=== PATIENT | female | born 1935 | race Caucasian/White ===

== ENCOUNTER → 2016-07-14 | Outpatient (CLI) | payer MEDICARE, OTHER ==
[2016-07-14 12:44] LABS: CHLORIDE,CL 108 mmol/L (98-110); SODIUM,NA 140 mmol/L (136-146)
== END ==
LOC: MW.CHIM 11:57
PROVIDERS: ATTEND Internal Medicine
DX: E05.90 Thyrotoxicosis, unspecified without thyrotoxic crisis or storm (principal); Z00.00 Encounter for general adult medical examination without abnormal findings; E03.9 Hypothyroidism, unspecified; M19.049 Primary osteoarthritis, unspecified hand
CPT/HCPCS: 36415; 80053; 80061; 84439; 84443; 85025; 99214

== ENCOUNTER 2021-04-11 11:15 | Emergency (ER) | payer MEDICARE, OTHER ==
--- NOTE | 2021-04-11 11:39 | EDM.PDOC ---
<Samra Grant - Last Filed: 04/11/21 12:13> ED HPI GENERAL MEDICAL PROBLEM - General Chief Complaint: Lower Extremity Injury/Pain Stated Complaint: DIAGNOSED W/BLOOD CLOT IN LEG Time Seen by Provider: 04/11/21 11:17 - History of Present Illness INITIAL COMMENTS - FREE TEXT/NARRATIVE: 85-year-old female sent over from neurology clinic after lower extremity ultrasound showed acute DVT from knee to mid calf involving the popliteal and posterior tibial veins. 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 She states her neurologist believes this may be related to IVIG. Patient states that she has been experiencing increased left lower extremity swelling for 1 week but denies pain. She is unable to dorsiflex or plantarflex her ankle. No overlying ecchymosis. Patient states she had COVID in late February and she is not vaccinated. Patient denies smoking. She has a history of hypertension and hypothyroidism. Patient denies history of bleeding or easy bruising. Denies history of cancer, renal failure, thrombocytopenia, stroke, diabetes or recent surgeries. Patient states she fell twice this summer by tripping over a garden hose. She ambulates with a walker at home. Denies alcohol abuse. Drinks 1 glass of wine once a week. - Related Data Allergies Allergy/AdvReac Type Severity Reaction Status Date / Time diphenhydramine Allergy Giddiness Verified 04/11/21 11:33 [From Benadryl] Penicillins Allergy Giddiness Verified 04/11/21 11:33 pseudoephedrine Allergy Giddiness Verified 04/11/21 11:33 [From Sudafed] Home Meds: Home Meds B-Complex with Vitamin C [Vitamin B-Complex & C] 1 each PO 04/11/21 [History] Cranberry 1,000 mg 04/11/21 [History] Glucosamine [Glucosamine Sulfate] 500 mg PO 04/11/21 [History] Levothyroxine 75 mcg PO ACBREAKFAST 04/11/21 [History] Magnesium Oxide 500 mg PO 04/11/21 [History] Rivaroxaban [Xarelto] 15 mg PO DAILY 21 Days #42 tab 04/11/21 [Rx] lisinopriL [Zestril] 10 mg PO 04/11/21 [History] Review of Systems - Review of Systems Review Of Systems: Comprehensive ROS is negative, except as noted in HPI. ED EXAM, GENERAL - Physical Exam Exam: See Below General Appearance: Alert, No Apparent Distress Eye Exam: Bilateral Eye: Normal Inspection Nose: Normal Inspection Throat/Mouth: Normal Inspection, Normal Lips, Normal Teeth, Normal Oropharynx Head: Atraumatic, Normocephalic Neck: Normal Inspection, Supple, Non-Tender Respiratory/Chest: No Respiratory Distress, Lungs Clear, Normal Breath Sounds, Chest Non-Tender Cardiovascular: Normal Peripheral Pulses, Regular Rate, Rhythm, No Rub GI/Abdominal: Normal Bowel Sounds, Soft, Non-Tender Back Exam: Normal Inspection Extremities: Other (Left lower extremity: Swelling from mid calf to mid foot, overlying erythema. Decreased range of motion due to swelling. Homans' sign positive. Nontender to palpation.) Neurological: Alert, Oriented, Normal Cognition, No Motor/Sensory Deficits Departure - Departure Disposition: Home, Self-Care 01 Clinical Impression: DVT (deep venous thrombosis) Qualifiers: DVT location: lower extremity Affected thrombotic vein of extremity: unspecified vein of extremity Chronicity: acute Laterality: unspecified laterality Qualified Code(s): I82.409 - Acute embolism and thrombosis of unspeci fied deep veins of unspecified lower extremity - Discharge Information Prescriptions: Rivaroxaban [Xarelto] 15 mg PO DAILY 21 Days #42 tab Instructions: Deep Vein Thrombosis Forms: ED Department Discharge Additional Instructions: Your ultrasound was positive for a deep venous thrombosis, or DVT, or blood clot in the leg. You were given a medication that was sent to [facility] called Xarelto which is a blood thinning medicine that will help stop the clot from getting bigger or going to your lungs. If at anytime you develop sudden onset chest pain or difficulty breathing you should immediately come back to the emergency department as you are at high risk of pulmonary embolism, or blood clot in the lungs. You need to follow-up with your primary care physician to discuss how long you need to be on the anticoagulant medication. Typically people are on this medicine for 6 to 12 months after developing a blood clot. You are at high risk of bleeding on this medication if you are to fall or injure yourself. If you fall and hit your head you will need to go to the nearest emergency department for a CT scan of the head to ensure that there is no intracranial bleeding. If you accidentally cut yourself you are at high risk of continued bleeding. You treat this the same at home with direct pressure, however, you may require a visit to the emergency department if you cannot control the bleeding at home. The following information is given to patients seen in the emergency department who are being discharged to home. This information is to outline your options for follow-up care. We provide all patients seen in our emergency department with a follow-up referral. The need for follow-up, as well as the timing and circumstances, are variable depending upon the specifics of your emergency department visit. If you don't have a primary care physician on staff, we will provide you with a referral. We always advise you to contact your personal physician following an emergency department visit to inform them of the circumstance of the visit and for follow-up with them and/or the need for any referrals to a consulting specialist. The emergency department will also refer you to a specialist when appropriate. This referral assures that you have the opportunity for follow-up care with a specialist. All of these measure are taken in an effort to provide you with optimal care, which includes your follow-up. Under all circumstances we always encourage you to contact your private physician who remains a resource for coordinating your care. When calling for follow-up care, please make the office aware that this follow-up is from your recent emergency room visit. If for any reason you are refused follow-up, please contact the [facility] Emergency Department at and asked to speak to the emergency department charge nurse. Please follow up with your primary care physician. If you do not have a primary care physician, see below: [facility] [address] [place] [id number] [facility] [address] [place] [address] [facility] [address] [place] [id number] Sepsis Event Note (ED) - Evaluation Sepsis Screening Result: No Definite Risk <Lalo Issa - Last Filed: 04/11/21 13:30> Course - Vital Signs Last Recorded V/S: Last Vital Signs Temp 97.8 F 04/11/21 11:24 Pulse 67 04/11/21 11:24 Resp 20 04/11/21 11:24 BP 155/77 H 04/11/21 11:24 Pulse Ox 97 04/11/21 11:24 - Orders/Labs/Meds Orders: Active Orders 24 hr Category Date Time Status Saline Lock Insert [OM.PC] Stat Oth 04/11/21 12:06 Ordered Labs: Laboratory Tests 04/11/21 04/11/21 04/11/21 Range/Units 12:26 12:26 12:26 WBC 3.77 L (4.0-11.0) K/uL RBC 3.70 L (4.30-5.90) M/uL Hgb 11.3 L (12.0-16.0) g/dL Hct 33.7 L (36.0-46.0) % MCV 91.1 (80.0-98.0) fL MCH 30.5 (27.0-32.0) pg MCHC 33.5 (31.0-37.0) g/dL RDW Std Deviation 45.1 (28.0-62.0) fl RDW Coeff of La 14 (11.0-15.0) % Plt Count 235 (150-400) K/uL MPV 9.60 (7.40-12.00) fL Neut % (Auto) 65.8 (48.0-80.0) % Lymph % (Auto) 23.6 (16.0-40.0) % Cass % (Auto) 9.0 (0.0-15.0) % Eos % (Auto) 1.1 (0.0-7.0) % Baso % (Auto) 0.5 (0.0-1.5) % Neut # (Auto) 2.5 (1.4-5.7) K/uL Lymph # (Auto) 0.9 (0.6-2.4) K/uL Cass # (Auto) 0.3 (0.0-0.8) K/uL Eos # (Auto) 0.0 (0.0-0.7) K/uL Baso # (Auto) 0.0 (0.0-0.1) K/uL Nucleated RBC % 0.0 /100WBC Nucleated RBCs # 0 K/uL INR 0.99 APTT 23.9 (18.6-31.3) SEC Sodium 136 (136-145) mmol/L Potassium 4.0 (3.5-5.1) mmol/L Chloride 103 (98-107) mmol/L Carbon Dioxide 23.8 (21.0-32.0) mmol/L BUN 18 (7.0-18.0) mg/dL Creatinine 0.7 (0.6-1.0) mg/dL Est Cr Clr Drug Dosing 56.10 mL/min Estimated GFR (MDRD) > 60.0 ml/min Glucose 95 (74-106) mg/dL Calcium 9.0 (8.5-10.1) mg/dL Departure - Departure Time of Disposition: 13:28 Condition: Good Sepsis Event Note (ED) - Focused Exam Vital Signs: Vital Signs Temp Pulse Resp BP Pulse Ox 04/11/21 11:24 97.8 F 67 20 155/77 H 97
[2021-04-11 13:02] LABS: BLOOD UREA NITROGEN,BUN 18 mg/dL (7.0-18.0); CARBON DIOXIDE,CO2 23.8 mmol/L (21.0-32.0); CHLORIDE,CL 103 mmol/L (98-107); GLUCOSE RANDOM 95 mg/dL (74-106); SODIUM,NA 136 mmol/L (136-145)
== END 2021-04-11 14:08 | disposition home or self-care (01) ==
LOC: MW.ED 11:15
DX: I82.409 Acute embolism and thrombosis of unspecified deep veins of unspecified lower extremity (principal); Z88.0 Allergy status to penicillin; Z88.8 Allergy status to other drugs, medicaments and biological substances; Z79.899 Other long term (current) drug therapy; Z79.01 Long term (current) use of anticoagulants
CPT/HCPCS: 36415; 80048; 85025; 85610; 85730; 99284